=== PATIENT | male | born 1955 | race African-American/Black ===

== ENCOUNTER 2021-03-24 19:18 | Inpatient (IN) | payer MEDICARE, OTHER ==
[~2021-03-24] VITALS: Ht 172.7 cm; Wt 74.8 kg
[2021-03-24 21:04] LABS: BG BASE EXCESS 0.9 mmol/L (-2.0-2.0); BG CARBOXYHEMOGLOBIN 0.2 % (0.5-1.5); BG DEOXYHEMOGLOBIN 1.7 % (0.0-5.0); BG FRACTION INSPIRED OXYGEN 21; BG HCO3 ACT 22.8 mmol/L (22.0-26.0); BG METHEMOGLOBIN 0.6 % (0.0-1.5); BG OXYGEN SATURATION 98.3 % (92.0-98.5); BG OXYHEMOGLOBIN 97.5 % (94.0-97.0); BG PCO2 30.4 mmHg (35.0-45.0); BG PH 7.492 (7.350-7.450); BG PO2 110.8 mmHg (75.0-100.0); BG SAMPLE SITE RIGHT RADIAL; BG TOTAL HEMOGLOBIN 19.8 g/dL (12.0-18.0); BG VENT MODE ROOM AIR
[2021-03-24 21:49] LABS: BASOPHILS % 0.7 % (0.0-2.0); EOSINOPHILS % 1.2 % (0.0-5.0); HEMATOCRIT. 54.3 % (42.0-52.0); HEMOGLOBIN. 18.2 g/dL (14.0-18.0); LYMPHOCYTES % 15.4 % (20.0-50.0); MEAN CORPUSCULAR HEMOGLOBIN 27.2 pg (28.0-32.0); MEAN CORPUSCULAR VOLUME 81.1 fL (80.0-94.0); MEAN PLATELET VOLUME 8.1 fl (7.4-10.4); MONOCYTES % 6.1 % (2.0-8.0); NEUTROPHILS % 76.6 % (40.0-76.0); PLATELET 178 x1000/uL (130-400); RED BLOOD CELL COUNT 6.69 mill/uL (4.7-6.1); RED CELL DISTRIBUTION WIDTH 13.6 % (11.6-14.6)
[2021-03-24 21:53] LABS: CHLORIDE 109 mEq/L (98-107)
[2021-03-24 21:57] LABS: ETHANOL BLOOD < 10 mg/dL
[2021-03-24 21:59] LABS: BETA HYDROXYBUTYRATE 2.3 mMol/L (0.0-0.3)
[2021-03-25] MEDS ORDERED: NICARDIPINE 40MG/200ML PREMIX 200 ML IV STA (00:39)
[2021-03-25] MEDS ORDERED: NICARDIPINE 50 MG in SODIUM CHLORIDE 0.9% 230 ML IV PRN (01:00)
[2021-03-25] MEDS ORDERED: ONDANSETRON HCL 4MG/2ML INJ IV PRN (01:00)
[2021-03-25] MEDS ORDERED: DEXTROSE 50% WATER 50ML SYRINGE IV PRN (01:00)
[2021-03-25] MEDS ORDERED: ACETAMINOPHEN 325MG TABLET PO PRN ×2 (01:00)
[2021-03-25 01:06] LABS: CLARITY URINE CLOUDY (CLEAR); COLOR URINE YELLOW (YELLOW); KETONES URINE 1+ (NEGATIVE); LEUKOCYTE ESTERASE URINE TRACE (NEGATIVE); NITRITE URINE NEGATIVE (NEGATIVE); OCCULT BLOOD URINE 1+ (NEGATIVE); PROTEIN URINE 3+ (NEGATIVE); SPECIFIC GRAVITY URINE 1.026 (1.005-1.030)
[2021-03-25 01:17] LABS: *AMPHETAMINES SCREEN URINE NEGATIVE (NEGATIVE); *BARBITURATES SCREEN URINE NEGATIVE (NEGATIVE); *BENZODIAZEPINES SCREEN URINE NEGATIVE (NEGATIVE); *COCAINE SCREEN URINE NEGATIVE (NEGATIVE); METHADONE URINE SCREEN NEGATIVE (NEGATIVE); OPIATES URINE SCREEN NEGATIVE (NEGATIVE)
[2021-03-25 01:18] LABS: CANNABINOID URINE SCREEN PRESUMTIVE POSITIVE (NEGATIVE); PHENCYCLIDINE URINE SCREEN NEGATIVE (NEGATIVE)
[2021-03-25] MEDS ORDERED: POTASSIUM CHLORIDE INJ 40 MEQ in DEXT 5% WATER 250 ML IV ONE (04:45)
[2021-03-25] MEDS: KCL 20MEQ/100ML PREMIX 100 ML IV SCH ×2 (05:07→08:01)
[2021-03-25] MEDS: SODIUM CHLORIDE 0.9% INJ 3ML FLUSH IVF SCH ×2 (06:27→14:00)
[2021-03-25] MEDS ORDERED: HYDRALAZINE 20MG/ML VIAL IV PRN (07:00)
[2021-03-25] MEDS: ASPIRIN 81MG EC TABLET PO SCH (09:00)
[2021-03-25] MEDS: AMLODIPINE 5MG TABLET PO SCH ×2 (09:10→20:26)
[2021-03-25] MEDS: BLOOD SUGAR DIAGNOSTIC STRIP TEST SCH ×4 (10:04→20:27)
[2021-03-25] MEDS: INSULIN LISPRO 100 UNITS/ML SUBCUT SCH ×4 (10:50→20:27)
[2021-03-25] MEDS: CLONIDINE 0.2MG TABLET PO PRN (11:49)
[2021-03-25] MEDS: LOSARTAN POTASSIUM 50 MG TABLET PO SCH ×2 (11:49→20:24)
[2021-03-25 14:21] VITALS: BP 160/97
[2021-03-25 14:24] VITALS: BP 115/73
[2021-03-25 14:29] VITALS: BP 160/97
[2021-03-25 16:00] VITALS: BP 192/87
[2021-03-25 18:00] VITALS: BP 190/66
[2021-03-25 20:00] VITALS: BP 156/82
[2021-03-25] MEDS: ATORVASTATIN CALCIUM 40MG TABLET PO SCH (20:24)
[2021-03-26] VITALS (16 sets, daily range): BP systolic 139–190; BP diastolic 61–130
[2021-03-26] MEDS: DIPHENHYDRAMINE 50MG/ML VIAL IV PRN ×2 (04:27→22:38)
[2021-03-26] MEDS: HYDRALAZINE 20MG/ML VIAL IV PRN ×3 (04:27→21:17)
[2021-03-26] MEDS: SODIUM CHLORIDE 0.9% INJ 3ML FLUSH IVF SCH ×4 (04:31→21:21)
[2021-03-26] MEDS: BLOOD SUGAR DIAGNOSTIC STRIP TEST SCH ×4 (07:30→21:14)
[2021-03-26] MEDS: INSULIN LISPRO 100 UNITS/ML SUBCUT SCH ×4 (09:26→20:40)
[2021-03-26] MEDS: LOSARTAN POTASSIUM 50 MG TABLET PO SCH ×2 (09:26→20:38)
[2021-03-26] MEDS: ASPIRIN 81MG EC TABLET PO SCH (09:26)
[2021-03-26] MEDS: AMLODIPINE 5MG TABLET PO SCH ×2 (09:26→20:39)
[2021-03-26] MEDS: CLONIDINE 0.2MG TABLET PO PRN (12:23)
[2021-03-26] MEDS: METFORMIN HCL 500MG TABLET PO SCH (17:57)
[2021-03-26] MEDS: ATORVASTATIN CALCIUM 40MG TABLET PO SCH (20:38)
[2021-03-26] MEDS: INSULIN GLARGINE UD 100 UNITS/ML SYR SUBCUT SCH (21:21)
[2021-03-27] VITALS (12 sets, daily range): BP systolic 142–185; BP diastolic 61–88
[2021-03-27] MEDS: CLONIDINE 0.2MG TABLET PO PRN (00:31)
[2021-03-27] MEDS: SODIUM CHLORIDE 0.9% INJ 3ML FLUSH IVF SCH ×3 (06:33→21:24)
[2021-03-27] MEDS: HYDRALAZINE 20MG/ML VIAL IV PRN ×3 (06:33→23:13)
[2021-03-27] MEDS: BLOOD SUGAR DIAGNOSTIC STRIP TEST SCH ×4 (07:51→20:48)
[2021-03-27] MEDS: ASPIRIN 81MG EC TABLET PO SCH (08:12)
[2021-03-27] MEDS: AMLODIPINE 5MG TABLET PO SCH ×2 (08:12→20:35)
[2021-03-27] MEDS: LOSARTAN POTASSIUM 50 MG TABLET PO SCH ×2 (08:12→20:35)
[2021-03-27] MEDS: METFORMIN HCL 500MG TABLET PO SCH ×2 (08:12→18:21)
[2021-03-27] MEDS: INSULIN LISPRO 100 UNITS/ML SUBCUT SCH ×4 (08:13→20:37)
[2021-03-27] MEDS: ATORVASTATIN CALCIUM 40MG TABLET PO SCH (20:35)
[2021-03-27] MEDS: INSULIN GLARGINE UD 100 UNITS/ML SYR SUBCUT SCH (21:25)
[2021-03-28] VITALS (14 sets, daily range): BP systolic 123–188; BP diastolic 61–91
[2021-03-28] MEDS: SODIUM CHLORIDE 0.9% INJ 3ML FLUSH IVF SCH ×3 (05:38→21:11)
[2021-03-28] MEDS: HYDRALAZINE 20MG/ML VIAL IV PRN ×2 (06:10→16:25)
[2021-03-28] MEDS: BLOOD SUGAR DIAGNOSTIC STRIP TEST SCH ×4 (07:35→21:11)
[2021-03-28] MEDS: LOSARTAN POTASSIUM 50 MG TABLET PO SCH ×2 (08:50→21:08)
[2021-03-28] MEDS: ASPIRIN 81MG EC TABLET PO SCH (08:50)
[2021-03-28] MEDS: METFORMIN HCL 500MG TABLET PO SCH ×2 (08:50→17:54)
[2021-03-28] MEDS: AMLODIPINE 5MG TABLET PO SCH ×2 (08:50→21:08)
[2021-03-28] MEDS: INSULIN LISPRO 100 UNITS/ML SUBCUT SCH ×4 (08:52→21:10)
[2021-03-28] MEDS: ATORVASTATIN CALCIUM 40MG TABLET PO SCH (21:08)
[2021-03-28] MEDS: INSULIN GLARGINE UD 100 UNITS/ML SYR SUBCUT SCH (21:10)
[2021-03-29] VITALS (10 sets, daily range): BP systolic 126–187; BP diastolic 72–90
[2021-03-29] MEDS: HYDRALAZINE 20MG/ML VIAL IV PRN ×2 (00:07→05:12)
[2021-03-29] MEDS: SODIUM CHLORIDE 0.9% INJ 3ML FLUSH IVF SCH ×3 (05:12→22:37)
[2021-03-29] MEDS: CLONIDINE 0.2MG TABLET PO PRN (06:43)
[2021-03-29] MEDS: BLOOD SUGAR DIAGNOSTIC STRIP TEST SCH ×4 (07:50→21:00)
[2021-03-29] MEDS: AMLODIPINE 5MG TABLET PO SCH ×2 (09:06→22:37)
[2021-03-29] MEDS: LOSARTAN POTASSIUM 50 MG TABLET PO SCH ×2 (09:06→22:37)
[2021-03-29] MEDS: ASPIRIN 81MG EC TABLET PO SCH (09:06)
[2021-03-29] MEDS: METFORMIN HCL 500MG TABLET PO SCH ×2 (09:06→17:48)
[2021-03-29] MEDS: INSULIN LISPRO 100 UNITS/ML SUBCUT SCH ×4 (09:08→23:00)
[2021-03-29] MEDS: ATORVASTATIN CALCIUM 40MG TABLET PO SCH (22:37)
[2021-03-29] MEDS: INSULIN GLARGINE UD 100 UNITS/ML SYR SUBCUT SCH (22:59)
[2021-03-30] VITALS (7 sets, daily range): BP systolic 129–180; BP diastolic 65–104
[2021-03-30] MEDS: SODIUM CHLORIDE 0.9% INJ 3ML FLUSH IVF SCH ×3 (05:36→21:02)
[2021-03-30] MEDS: BLOOD SUGAR DIAGNOSTIC STRIP TEST SCH ×4 (07:30→20:29)
[2021-03-30] MEDS: INSULIN LISPRO 100 UNITS/ML SUBCUT SCH ×4 (08:44→21:11)
[2021-03-30] MEDS: AMLODIPINE 5MG TABLET PO SCH ×3 (08:51→21:02)
[2021-03-30] MEDS: METFORMIN HCL 500MG TABLET PO SCH ×2 (08:51→18:10)
[2021-03-30] MEDS: ASPIRIN 81MG EC TABLET PO SCH (08:51)
[2021-03-30] MEDS: LOSARTAN POTASSIUM 50 MG TABLET PO SCH ×3 (08:51→21:02)
[2021-03-30] MEDS: CLONIDINE 0.2MG TABLET PO PRN (12:37)
[2021-03-30] MEDS: ATORVASTATIN CALCIUM 40MG TABLET PO SCH ×2 (21:00→21:02)
[2021-03-30] MEDS: HYDRALAZINE 20MG/ML VIAL IV PRN (21:55)
[2021-03-30] MEDS: INSULIN GLARGINE UD 100 UNITS/ML SYR SUBCUT SCH (21:59)
[2021-03-31] VITALS (7 sets, daily range): BP systolic 112–173; BP diastolic 59–85
[2021-03-31] MEDS: SODIUM CHLORIDE 0.9% INJ 3ML FLUSH IVF SCH ×2 (05:51→14:42)
[2021-03-31] MEDS: INSULIN LISPRO 100 UNITS/ML SUBCUT SCH ×2 (08:00→12:49)
[2021-03-31] MEDS: BLOOD SUGAR DIAGNOSTIC STRIP TEST SCH ×2 (08:01→12:49)
[2021-03-31] MEDS: ASPIRIN 81MG EC TABLET PO SCH (08:02)
[2021-03-31] MEDS: METFORMIN HCL 500MG TABLET PO SCH (08:02)
[2021-03-31] MEDS: LOSARTAN POTASSIUM 50 MG TABLET PO SCH (08:02)
[2021-03-31] MEDS: AMLODIPINE 5MG TABLET PO SCH (08:04)
[2021-03-31] MEDS: CLONIDINE 0.2MG TABLET PO PRN (16:13)
[2021-03-31] MEDS: HYDRALAZINE 20MG/ML VIAL IV PRN (16:45)
== END 2021-03-31 17:20 | DRG 64 ==
LOC: ER 19:18 → EDBEDREQTM 03-25 00:29 → EDBEDREQ 03-25 00:29 → EDBEDREQDT 03-25 00:29 → 5EST 03-25 00:39 → EDBEDREQSVC 03-25 00:51 → EDBEDREQTM 03-25 00:51 → EDBEDREQSVC 03-25 11:06 → ENRESERV 03-25 11:07
PROVIDERS: ADMIT Internal Medicine; ATTEND Internal Medicine
PROC: 4A10X4Z Monitoring of Central Nervous Electrical Activity, External Approach (ICD-10-PCS; principal; 2021-03-27)
DX: I63.232 Cerebral infarction due to unspecified occlusion or stenosis of left carotid arteries (principal); G93.41 Metabolic encephalopathy; R47.01 Aphasia; I45.10 Unspecified right bundle-branch block; E78.5 Hyperlipidemia, unspecified; E11.9 Type 2 diabetes mellitus without complications; Z20.822 Contact with and (suspected) exposure to COVID-19
CPT/HCPCS: 36415; 36600; 70551; 71045; 80053; 80061; 80305; 80307; 80320; 80329; 81003; 82010; 82140; 82375; 82805; 82962; 83036; 84443; 84484; 85025; 87426; 93005; 93880; 95816; 97112; 97162; 97166; 97530; 97535; 99291; J0360; J1200; J1815; J2405; J3480; J7040; J7042; G0480

== ENCOUNTER 2021-12-13 16:39 | Inpatient (IN) | payer MEDICARE, OTHER, MEDICAID ==
[~2021-12-13] VITALS: Ht 182.9 cm; Wt 66.9 kg
[2021-12-13] MEDS ORDERED: SODIUM CHLORIDE 0.9% 1000ML BAG (SEPSIS BOLUS) IV ONE (17:00)
[2021-12-13 17:36] LABS: EOSINOPHILS % 4.1 % (0.0-5.0); HEMATOCRIT. 47.5 % (42.0-52.0); HEMOGLOBIN. 15.7 g/dL (14.0-18.0); LYMPHOCYTES % 35.3 % (20.0-50.0); MEAN CORPUSCULAR HEMOGLOBIN 26.7 pg (28.0-32.0); MEAN CORPUSCULAR VOLUME 80.8 fL (80.0-94.0); MEAN PLATELET VOLUME 7.4 fl (7.4-10.4); MONOCYTES % 5.4 % (2.0-8.0); NEUTROPHILS % 54.2 % (40.0-76.0); PLATELET 210 x1000/uL (130-400); RED BLOOD CELL COUNT 5.88 mill/uL (4.7-6.1); RED CELL DISTRIBUTION WIDTH 14.1 % (11.6-14.6)
[2021-12-13 17:43] LABS: CHLORIDE 103 mEq/L (98-107)
[2021-12-13] MEDS ORDERED: ASPIRIN 300MG SUPP PR ONE (19:00)
[2021-12-13] MEDS ORDERED: PIPERACILLIN/TAZ 3.375G PREMIX 50 ML IV ONE (19:00)
[2021-12-13] MEDS ORDERED: VANCOMYCIN 1G PREMIX 200 ML IV ONE (19:00)
[2021-12-13] MEDS: ASPIRIN 300MG SUPP PR NR (23:15)
[2021-12-14] MEDS: HYDRALAZINE 20MG/ML VIAL IV PRN ×3 (01:32→11:36)
[2021-12-14] MEDS: ASPIRIN 300MG SUPP PR NR (01:54)
[2021-12-14] MEDS ORDERED: CLONIDINE 0.1MG TABLET PO PRN (10:30)
[2021-12-14] MEDS ORDERED: ONDANSETRON HCL 4MG/2ML INJ IV PRN (10:30)
[2021-12-14] MEDS ORDERED: MAGNESIUM/ALUMINUM HYDROXIDE/SIMETHICONE 30ML UDC PO PRN (10:30)
[2021-12-14] MEDS ORDERED: ACETAMINOPHEN 325MG TABLET PO PRN ×2 (10:30)
[2021-12-14] MEDS ORDERED: DIPHENHYDRAMINE 50MG/ML VIAL IV PRN (10:30)
[2021-12-14] MEDS ORDERED: DEXTROSE 50% WATER 50ML SYRINGE IV PRN (10:30)
[2021-12-14 11:55] LABS: CLARITY URINE TURBID (CLEAR); COLOR URINE YELLOW (YELLOW); KETONES URINE NEGATIVE (NEGATIVE); LEUKOCYTE ESTERASE URINE 3+ (NEGATIVE); NITRITE URINE NEGATIVE (NEGATIVE); OCCULT BLOOD URINE 1+ (NEGATIVE); PH URINE 7.5 (4.5-8.0); PROTEIN URINE 3+ (NEGATIVE); SPECIFIC GRAVITY URINE 1.011 (1.005-1.030); UROBILINOGEN URINE 0.2 E.U./dL (0.2-1.0)
[2021-12-14] MEDS: INSULIN LISPRO 100 UNITS/ML SUBCUT SCH ×4 (12:00→20:53)
[2021-12-14 12:05] VITALS: BP 159/72
[2021-12-14] MEDS: BLOOD SUGAR DIAGNOSTIC STRIP TEST SCH ×4 (12:20→20:55)
[2021-12-14] MEDS: ENOXAPARIN 40MG/0.4ML SYR SUBCUT SCH (13:54)
[2021-12-14] MEDS: SODIUM CHLORIDE 0.9% INJ 3ML FLUSH IVF SCH ×2 (14:00→22:30)
[2021-12-14 16:00] VITALS: BP 159/58
[2021-12-14] MEDS: METFORMIN HCL 500MG TABLET PO SCH (18:49)
[2021-12-14] MEDS: LOSARTAN POTASSIUM 50 MG TABLET PO SCH (18:49)
[2021-12-14 20:00] VITALS: BP 145/62
[2021-12-14] MEDS ORDERED: INSU100V37 SQ (20:13)
[2021-12-14] MEDS ORDERED: ATOR40TA70 MT (20:13)
[2021-12-14] MEDS ORDERED: ASPI-1406 MT (20:13)
[2021-12-14] MEDS ORDERED: AMLO5TAB4 MT (20:13)
[2021-12-14] MEDS ORDERED: LANTUSUD SUBCUT (20:13)
[2021-12-14] MEDS ORDERED: LOSA50TA3 MT (20:13)
[2021-12-14] MEDS ORDERED: METF-414 MT (20:13)
[2021-12-14] MEDS: AMLODIPINE 5MG TABLET PO SCH (20:52)
[2021-12-14] MEDS: ATORVASTATIN CALCIUM 40MG TABLET PO SCH (20:52)
[2021-12-14] MEDS ORDERED: ZOLPIDEM TARTRATE 5MG TABLET PO PRN (21:00)
[2021-12-14] MEDS: INSULIN GLARGINE 100 UNITS/ML SUBCUT SCH (22:31)
[2021-12-15] VITALS: BP 108/59
[2021-12-15 04:00] VITALS: BP 148/67
[2021-12-15] MEDS: SODIUM CHLORIDE 0.9% INJ 3ML FLUSH IVF SCH ×3 (05:31→21:21)
[2021-12-15] MEDS: BLOOD SUGAR DIAGNOSTIC STRIP TEST SCH ×4 (05:31→20:52)
[2021-12-15 08:00] VITALS: BP 142/74
[2021-12-15] MEDS: AMLODIPINE 5MG TABLET PO SCH ×2 (11:24→21:21)
[2021-12-15] MEDS: ASPIRIN 81MG EC TABLET PO SCH (11:24)
[2021-12-15] MEDS: METFORMIN HCL 500MG TABLET PO SCH ×2 (11:25→18:17)
[2021-12-15] MEDS: LOSARTAN POTASSIUM 50 MG TABLET PO SCH ×2 (11:25→18:17)
[2021-12-15] MEDS: INSULIN LISPRO 100 UNITS/ML SUBCUT SCH ×4 (11:29→21:55)
[2021-12-15] MEDS: ENOXAPARIN 40MG/0.4ML SYR SUBCUT SCH (11:32)
[2021-12-15 12:00] VITALS: BP 138/69
[2021-12-15 16:00] VITALS: BP 135/74
[2021-12-15 20:00] VITALS: BP 111/53
[2021-12-15] MEDS: ATORVASTATIN CALCIUM 40MG TABLET PO SCH (21:21)
[2021-12-15] MEDS: INSULIN GLARGINE 100 UNITS/ML SUBCUT SCH (21:56)
[2021-12-16] VITALS (7 sets, daily range): BP systolic 110–141; BP diastolic 51–73
[2021-12-16] MEDS: SODIUM CHLORIDE 0.9% INJ 3ML FLUSH IVF SCH ×2 (05:33→13:42)
[2021-12-16] MEDS: BLOOD SUGAR DIAGNOSTIC STRIP TEST SCH ×4 (06:04→20:52)
[2021-12-16] MEDS: METFORMIN HCL 500MG TABLET PO SCH ×2 (07:50→17:29)
[2021-12-16] MEDS: INSULIN LISPRO 100 UNITS/ML SUBCUT SCH ×4 (07:50→21:18)
[2021-12-16] MEDS: ASPIRIN 81MG EC TABLET PO SCH (08:34)
[2021-12-16] MEDS: AMLODIPINE 5MG TABLET PO SCH ×2 (08:34→21:17)
[2021-12-16] MEDS: LOSARTAN POTASSIUM 50 MG TABLET PO SCH ×2 (08:34→16:40)
[2021-12-16] MEDS: ENOXAPARIN 40MG/0.4ML SYR SUBCUT SCH (10:50)
[2021-12-16] MEDS: ATORVASTATIN CALCIUM 40MG TABLET PO SCH (21:17)
== END 2021-12-16 21:30 | DRG 71 ==
LOC: ER 16:39 → MICUSO 18:59 → EDBEDREQ 19:01 → 6WST 12-14 12:15
PROVIDERS: ADMIT Internal Medicine; ATTEND Internal Medicine
DX: G93.41 Metabolic encephalopathy (principal); I69.351 Hemiplegia and hemiparesis following cerebral infarction affecting right dominant side; R47.01 Aphasia; R53.1 Weakness; E11.9 Type 2 diabetes mellitus without complications; I10 Essential (primary) hypertension; E78.00 Pure hypercholesterolemia, unspecified; Z20.822 Contact with and (suspected) exposure to COVID-19; Z87.891 Personal history of nicotine dependence
CPT/HCPCS: 36415; 71045; 80053; 81003; 82962; 83036; 83605; 83880; 84145; 84484; 85025; 87426; 93005; 99291; C9803; J0360; J1650; J1815; J2543; J3370; J7030

== ENCOUNTER 2022-02-03 13:08 | Inpatient (IN) | payer MEDICARE, OTHER ==
[~2022-02-03] VITALS: Ht 172.7 cm; Wt 62.6 kg
[~2022-02-03 13:08] MED LIST: AMLO5TAB4 MT; ASPI-1406 MT; ATOR40TA70 MT; INSU100V37 SQ; LANTUSUD SUBCUT; LOSA50TA3 MT; METF-414 MT
[2022-02-03] MEDS ORDERED: LEVETIRACETAM 1000MG PREMIX 100 ML IV ONE (13:45)
[2022-02-03 14:17] LABS: BASOPHILS % 0.8 % (0.0-2.0); EOSINOPHILS % 3.9 % (0.0-5.0); HEMATOCRIT. 44.4 % (42.0-52.0); HEMOGLOBIN. 14.6 g/dL (14.0-18.0); LYMPHOCYTES % 19.6 % (20.0-50.0); MEAN CORPUSCULAR HEMOGLOBIN 26.5 pg (28.0-32.0); MEAN CORPUSCULAR VOLUME 80.7 fL (80.0-94.0); MEAN PLATELET VOLUME 7.3 fl (7.4-10.4); MONOCYTES % 4.8 % (2.0-8.0); NEUTROPHILS % 70.9 % (40.0-76.0); PLATELET 225 x1000/uL (130-400); RED CELL DISTRIBUTION WIDTH 13.9 % (11.6-14.6)
[2022-02-03 14:26] LABS: CHLORIDE 103 mEq/L (98-107)
[2022-02-03 14:35] LABS: ETHANOL BLOOD < 10 mg/dL
[2022-02-03] MEDS ORDERED: HYDRALAZINE 20MG/ML VIAL IV PRN (19:00)
[2022-02-03] MEDS ORDERED: ACETAMINOPHEN 325MG TABLET PO PRN ×2 (19:00)
[2022-02-03] MEDS ORDERED: DIPHENHYDRAMINE 50MG/ML VIAL IV PRN (19:00)
[2022-02-03] MEDS ORDERED: DEXTROSE 50% WATER 50ML SYRINGE IV PRN (19:00)
[2022-02-03] MEDS ORDERED: ONDANSETRON HCL 4MG/2ML INJ IV PRN (19:00)
[2022-02-03] MEDS ORDERED: MAGNESIUM/ALUMINUM HYDROXIDE/SIMETHICONE 30ML UDC PO PRN (19:00)
[2022-02-03] MEDS ORDERED: CLONIDINE 0.1MG TABLET PO PRN (19:00)
[2022-02-03 20:00] VITALS: BP 136/64
[2022-02-03] MEDS ORDERED: MVI, ADULT NO.1 10 ML, FOLIC ACID 1 MG, THIAMINE HCL 100 MG in SODIUM CHLORIDE 0.9% 1,0... IV ONE ×4 (20:00)
[2022-02-03] MEDS ORDERED: ZOLPIDEM TARTRATE 5MG TABLET PO PRN (21:00)
[2022-02-03] MEDS: AMLODIPINE 5MG TABLET PO SCH (22:34)
[2022-02-03 22:35] VITALS: BP 136/64
[2022-02-03] MEDS: BLOOD SUGAR DIAGNOSTIC STRIP TEST SCH (22:35)
[2022-02-03] MEDS: LOSARTAN POTASSIUM 50 MG TABLET PO SCH (22:36)
[2022-02-03] MEDS: ENOXAPARIN 40MG/0.4ML SYR SUBCUT SCH (22:36)
[2022-02-03] MEDS: ATORVASTATIN CALCIUM 40MG TABLET PO SCH (22:36)
[2022-02-03] MEDS: INSULIN LISPRO 100 UNITS/ML SUBCUT SCH (22:37)
[2022-02-03] MEDS: INSULIN GLARGINE 100 UNITS/ML SUBCUT SCH (22:56)
[2022-02-04] VITALS (7 sets, daily range): BP systolic 137–157; BP diastolic 51–81
[2022-02-04] MEDS ORDERED: LORAZEPAM 2MG/ML CPJ IV PRN (01:15)
[2022-02-04] MEDS: BLOOD SUGAR DIAGNOSTIC STRIP TEST SCH ×4 (06:27→20:27)
[2022-02-04] MEDS: METFORMIN HCL 500MG TABLET PO SCH ×2 (07:20→17:20)
[2022-02-04] MEDS: INSULIN LISPRO 100 UNITS/ML SUBCUT SCH ×4 (07:20→20:28)
[2022-02-04] MEDS: AMLODIPINE 5MG TABLET PO SCH ×2 (08:59→20:27)
[2022-02-04] MEDS: LOSARTAN POTASSIUM 50 MG TABLET PO SCH ×2 (08:59→20:26)
[2022-02-04] MEDS ORDERED: LEVETIRACETAM 500MG PREMIX 100 ML IV SCH ×2 (09:00→21:00)
[2022-02-04] MEDS: ASPIRIN 81MG EC TABLET PO SCH (09:00)
[2022-02-04] MEDS: ENOXAPARIN 40MG/0.4ML SYR SUBCUT SCH (20:26)
[2022-02-04] MEDS: ATORVASTATIN CALCIUM 40MG TABLET PO SCH (20:27)
[2022-02-04] MEDS: LEVETIRACETAM 500MG TABLET PO SCH (20:27)
[2022-02-04] MEDS: INSULIN GLARGINE 100 UNITS/ML SUBCUT SCH (22:00)
[2022-02-05] VITALS (8 sets, daily range): BP systolic 117–167; BP diastolic 24–100
[2022-02-05] MEDS: BLOOD SUGAR DIAGNOSTIC STRIP TEST SCH ×4 (05:56→21:59)
[2022-02-05] MEDS: INSULIN LISPRO 100 UNITS/ML SUBCUT SCH ×4 (07:20→21:00)
[2022-02-05] MEDS: METFORMIN HCL 500MG TABLET PO SCH ×2 (10:54→19:10)
[2022-02-05] MEDS: ASPIRIN 81MG EC TABLET PO SCH (10:54)
[2022-02-05] MEDS: LOSARTAN POTASSIUM 50 MG TABLET PO SCH ×2 (10:54→21:59)
[2022-02-05] MEDS: AMLODIPINE 5MG TABLET PO SCH ×2 (10:54→21:59)
[2022-02-05] MEDS: LEVETIRACETAM 500MG TABLET PO SCH ×2 (10:54→21:58)
[2022-02-05] MEDS: ATORVASTATIN CALCIUM 40MG TABLET PO SCH (21:59)
[2022-02-05] MEDS: ENOXAPARIN 40MG/0.4ML SYR SUBCUT SCH (22:00)
[2022-02-05] MEDS: INSULIN GLARGINE 100 UNITS/ML SUBCUT SCH (23:00)
[2022-02-06] VITALS: BP 134/66
[2022-02-06 04:00] VITALS: BP 117/58
[2022-02-06] MEDS: BLOOD SUGAR DIAGNOSTIC STRIP TEST SCH ×2 (06:21→12:00)
[2022-02-06] MEDS: INSULIN LISPRO 100 UNITS/ML SUBCUT SCH ×3 (07:20→12:05)
[2022-02-06 08:00] VITALS: BP 154/77
[2022-02-06] MEDS: ASPIRIN 81MG EC TABLET PO SCH (10:00)
[2022-02-06] MEDS: METFORMIN HCL 500MG TABLET PO SCH (10:00)
[2022-02-06] MEDS: LEVETIRACETAM 500MG TABLET PO SCH (10:00)
[2022-02-06] MEDS: AMLODIPINE 5MG TABLET PO SCH (10:00)
[2022-02-06] MEDS: LOSARTAN POTASSIUM 50 MG TABLET PO SCH (11:11)
[2022-02-06 12:00] VITALS: BP 142/68
[2022-02-06 13:15] VITALS: BP 154/77
== END 2022-02-06 14:22 | DRG 101 ==
LOC: ER 13:28 → ENRESERV 17:11 → 3WST 19:29
PROVIDERS: ADMIT Internal Medicine; ATTEND Internal Medicine
DX: G40.909 Epilepsy, unspecified, not intractable, without status epilepticus (principal); I69.351 Hemiplegia and hemiparesis following cerebral infarction affecting right dominant side; R47.01 Aphasia; E11.9 Type 2 diabetes mellitus without complications; E78.00 Pure hypercholesterolemia, unspecified; G93.89 Other specified disorders of brain; I10 Essential (primary) hypertension
CPT/HCPCS: 36415; 71045; 80053; 80320; 82962; 83036; 85025; 99285; J1650; J1815; J1953; J3411; J3490; J7030; G0480

== ENCOUNTER 2022-05-01 15:27 | Emergency (ER) | payer MEDICARE, MEDICAID ==
[~2022-05-01] VITALS: Ht 175.3 cm; Wt 75.0 kg
[~2022-05-01 15:27] MED LIST changes: +AMIN30LI2 PO; -AMLO5TAB4 MT; +AMLO5TAB88 PO; +ASCO125T PO; -ASPI-1406 MT; +ASPI-1406 PO; +CLON0.2T PO; +CRAN250C MT; +INSU100I13 SQ; +INSU100I28 SQ; -INSU100V37 SQ; -LANTUSUD SUBCUT; -LOSA50TA3 MT; +LOSA50TA41 MT; -METF-414 MT; +METF-416 MT; +MULT-230 MT
[2022-05-01] MEDS ORDERED: LEVETIRACETAM 500MG PREMIX 100 ML IV ONE (17:30)
[2022-05-01] MEDS ORDERED: LORAZEPAM 2MG/ML CPJ IV ONE (17:30)
[2022-05-01] MEDS ORDERED: SODIUM CHLORIDE 0.9% 1,000 ML IV ONE (17:30)
[2022-05-01 19:13] LABS: BASOPHILS % 0.5 % (0.0-2.0); EOSINOPHILS % 0.8 % (0.0-5.0); HEMATOCRIT. 46.6 % (42.0-52.0); HEMOGLOBIN. 15.4 g/dL (14.0-18.0); LYMPHOCYTES % 8.1 % (20.0-50.0); MEAN CORPUSCULAR HEMOGLOBIN 26.6 pg (28.0-32.0); MEAN CORPUSCULAR VOLUME 80.4 fL (80.0-94.0); MEAN PLATELET VOLUME 8.1 fl (7.4-10.4); MONOCYTES % 3.6 % (2.0-8.0); PLATELET 250 x1000/uL (130-400); RED BLOOD CELL COUNT 5.79 mill/uL (4.7-6.1); RED CELL DISTRIBUTION WIDTH 14.5 % (11.6-14.6)
[2022-05-01] MEDS ORDERED: LORAZEPAM 2MG/ML CPJ IV NR (19:15)
[2022-05-01 19:24] LABS: CHLORIDE 102 mEq/L (98-107)
[2022-05-02] MEDS ORDERED: CLONIDINE 0.1MG TABLET PO ONE (10:15)
[2022-05-02 10:30] VITALS: BP 152/99
== END 2022-05-02 10:45 ==
LOC: ER 15:27
DX: R56.9 Unspecified convulsions (principal); R47.01 Aphasia; E11.9 Type 2 diabetes mellitus without complications; E78.00 Pure hypercholesterolemia, unspecified; I10 Essential (primary) hypertension; Z86.73 Personal history of transient ischemic attack (TIA), and cerebral infarction without residual deficits; Z79.899 Other long term (current) drug therapy
CPT/HCPCS: 36415; 70450; 71045; 80053; 84484; 85025; 93005; 96365; 96366; 96375; 99285; J1953; J2060; J7030

== ENCOUNTER 2023-08-29 11:27 | Inpatient (IN) | payer MEDICARE, MEDICAID ==
[~2023-08-29] VITALS: Ht 170.2 cm; Wt 71.2 kg
[2023-08-29 12:05] LABS: BASOPHILS % 0.9 % (0.0-2.0); EOSINOPHILS % 3.3 % (0.0-5.0); HEMATOCRIT. 39.2 % (42.0-52.0); HEMOGLOBIN. 13.4 g/dL (14.0-18.0); LYMPHOCYTES % 23.2 % (20.0-50.0); MEAN CORPUSCULAR HGB CONC 34.3 g/dL (31.0-37.0); MEAN CORPUSCULAR VOLUME 81.8 fL (80.0-94.0); MEAN PLATELET VOLUME 6.9 fl (7.4-10.4); MONOCYTES % 5.9 % (2.0-8.0); NEUTROPHILS % 66.7 % (40.0-76.0); PLATELET 413 x1000/uL (130-400); RED BLOOD CELL COUNT 4.79 mill/uL (4.7-6.1); RED CELL DISTRIBUTION WIDTH 13.5 % (11.6-14.6); WHITE BLOOD COUNT 7.2 x1000/uL (4.5-11.0)
[2023-08-29 12:14] LABS: CHLORIDE 102 mEq/L (98-107); POTASSIUM 3.9 mEq/L (3.5-5.1); SODIUM 137 mEq/L (136-145)
[2023-08-29 12:15] LABS: CALCIUM 9.7 mg/dL (8.7-10.4); CARBON DIOXIDE 29 mEq/L (21-32)
[2023-08-29] MEDS: VANCOMYCIN 1G PREMIX 200 ML IV ONE (12:19)
[2023-08-29 12:20] LABS: CREATININE 0.9 mg/dL (0.6-1.3); GLUCOSE 163 mg/dL (70-105); TROPONIN I HIGH SENSITIVITY 4 ng/L (3.0-53); UREA NITROGEN BLOOD 12 mg/dL (9-23)
[2023-08-29 12:21] LABS: INR 1.2; PROTHROMBIN TIME 12.7 sec (9.6-11.0)
[2023-08-29] MEDS ORDERED: ONDANSETRON HCL 4MG/2ML INJ IV PRN (16:30)
[2023-08-29] MEDS ORDERED: DEXTROSE 50% WATER 50ML SYRINGE IV PRN (16:30)
[2023-08-29] MEDS ORDERED: ZOLPIDEM TARTRATE 5MG TABLET PO PRN (16:30)
[2023-08-29] MEDS ORDERED: DIPHENHYDRAMINE 50MG/ML VIAL IV PRN (16:30)
[2023-08-29] MEDS ORDERED: LORAZEPAM 2MG/ML INJ IV PRN (16:30)
[2023-08-29] MEDS ORDERED: MAGNESIUM/ALUMINUM HYDROXIDE/SIMETHICONE 30ML UDC PO PRN (16:30)
[2023-08-29] MEDS ORDERED: MAGNESIUM HYDROXIDE 400MG/5ML 30ML UDC PO PRN (16:30)
[2023-08-29] MEDS ORDERED: ACETAMINOPHEN 325MG TABLET PO PRN ×2 (16:30)
[2023-08-29] MEDS ORDERED: CLONIDINE 0.1MG TABLET PO PRN (16:30)
[2023-08-29] MEDS ORDERED: CEFAZOLIN 500 MG in DEXTROSE 5% WATER 50 ML IV SCH (16:30)
[2023-08-29 17:00] VITALS: BP 151/72; PULSE 73; RESP 18; TEMP 97.9
[2023-08-29] MEDS ORDERED: NALOXONE HCL 0.4MG/ML VIAL IV PRN (17:00)
[2023-08-29] MEDS: HYDROCODONE/ACETAMINOPHEN 5/325MG TABLET PO PRN (17:12)
[2023-08-29] MEDS: ENOXAPARIN 40MG/0.4ML SYR SUBCUT SCH (17:12)
[2023-08-29] MEDS: BLOOD SUGAR DIAGNOSTIC STRIP TEST SCH (17:13)
[2023-08-29] MEDS: METFORMIN HCL 500MG TABLET PO SCH (17:13)
[2023-08-29] MEDS: DOCUSATE SODIUM 100MG CAPSULE PO SCH (17:13)
[2023-08-29] MEDS: INSULIN LISPRO 100 UNITS/ML SUBCUT SCH (17:17)
[2023-08-29 18:20] VITALS: BP 151/72; PULSE 73; RESP 18; TEMP 97.9
[2023-08-29] MEDS: CEFAZOLIN 1000MG PREMIX 50ML IV SCH (18:56)
[2023-08-29 20:00] VITALS: BP 130/79; PULSE 68; RESP 16; TEMP 97.4
[2023-08-29] MEDS: INSULIN GLARGINE 100 UNITS/ML SUBCUT SCH (21:42)
[2023-08-29] MEDS: LEVETIRACETAM 500MG TABLET PO SCH (21:45)
[2023-08-29] MEDS: GABAPENTIN 100MG CAPSULE PO SCH (21:45)
[2023-08-29] MEDS: AMLODIPINE 5MG TABLET PO SCH (21:45)
[2023-08-29] MEDS: ATORVASTATIN CALCIUM 40MG TABLET PO SCH (21:45)
[2023-08-29] MEDS: SODIUM CHLORIDE 0.9% INJ 3ML FLUSH IVF SCH (21:46)
[2023-08-30 04:00] VITALS: BP 115/61; PULSE 75; RESP 18; TEMP 98.2
[2023-08-30 08:00] VITALS: BP 149/80; PULSE 80; RESP 20; TEMP 98.1
[2023-08-30] MEDS: LOSARTAN 50 MG TABLET PO SCH (08:58)
[2023-08-30] MEDS: MULTIVITAMINS,THER W-MINERALS TABLET PO SCH (08:59)
[2023-08-30] MEDS: ASPIRIN 81MG EC TABLET PO SCH (09:00)
[2023-08-30 12:00] VITALS: BP 134/69; PULSE 72; RESP 20; TEMP 98.4
[2023-08-30 16:00] VITALS: BP 130/68; PULSE 68; RESP 20; TEMP 97.5
[2023-08-30 16:02] LABS: CLARITY URINE CLOUDY (CLEAR); COLOR URINE YELLOW (YELLOW); GLUCOSE URINE NEGATIVE (NEGATIVE); KETONES URINE NEGATIVE (NEGATIVE); LEUKOCYTE ESTERASE URINE 3+ (NEGATIVE); NITRITE URINE NEGATIVE (NEGATIVE); OCCULT BLOOD URINE TRACE (NEGATIVE); PROTEIN URINE 1+ (NEGATIVE); UROBILINOGEN URINE 0.2 E.U./dL (0.2-1.0)
[2023-08-30 16:27] LABS: BACTERIA URINE 1+; RBC URINE 0-2 /hpf (0-2); SQUAMOUS EPITHELIAL CELL URINE FEW /lpf (RARE/1+); WBC URINE 25-50 /hpf (0-2)
[2023-08-30 20:00] VITALS: BP 117/72; PULSE 78; RESP 21; TEMP 97.6
[2023-08-30] MEDS: METRONIDAZOLE 500MG TABLET PO SCH (21:06)
[2023-08-30] MEDS ORDERED: LIDOCAINE HCL/PF 2% 20 MG/ML 10ML VIAL INL NR (23:00)
[2023-08-30] MEDS ORDERED: LIDOCAINE HCL 1% 20ML VIAL (Pyxis) INJ INL NR (23:00)
[2023-08-31 04:00] VITALS: BP 152/72; PULSE 83; TEMP 97.9
[2023-08-31 08:00] VITALS: BP 157/70; PULSE 84; RESP 18; TEMP 97.7
[2023-08-31 12:00] VITALS: BP 141/73; PULSE 62; RESP 18; TEMP 97.9
[2023-08-31 16:00] VITALS: BP 142/76; PULSE 71; RESP 18; TEMP 97.1
[2023-08-31 20:00] VITALS: BP 148/98; PULSE 80; RESP 17; TEMP 98.8
[2023-09-01] VITALS: BP 167/74; PULSE 80; RESP 18; TEMP 97.6
[2023-09-01 04:00] VITALS: BP 158/75; PULSE 90; RESP 18; TEMP 97.5
[2023-09-01 08:00] VITALS: BP 125/59; PULSE 78; RESP 19; TEMP 97.9
[2023-09-01 12:00] VITALS: BP 153/75; PULSE 78; RESP 19; TEMP 97.4
[2023-09-01 15:39] VITALS: BP 126/68; PULSE 62; TEMP 97.4; O2SAT 99
[2023-09-01 16:00] VITALS: BP 154/67; PULSE 77; RESP 20; TEMP 97.4
== END 2023-09-01 17:48 | DRG 264 ==
LOC: ER 11:39 → 6WST 12:49 → EDBEDREQ 12:52 → EDBEDREQTM 12:52 → EDBEDREQSVC 12:52
PROVIDERS: ADMIT Internal Medicine; ATTEND Internal Medicine
PROC: 0YBM0ZZ Excision of Right Foot, Open Approach (ICD-10-PCS; principal; 2023-08-31)
DX: E11.51 Type 2 diabetes mellitus with diabetic peripheral angiopathy without gangrene (principal); L03.115 Cellulitis of right lower limb; I69.351 Hemiplegia and hemiparesis following cerebral infarction affecting right dominant side; N39.0 Urinary tract infection, site not specified; E11.621 Type 2 diabetes mellitus with foot ulcer; L97.519 Non-pressure chronic ulcer of other part of right foot with unspecified severity; I10 Essential (primary) hypertension; G40.909 Epilepsy, unspecified, not intractable, without status epilepticus; E78.00 Pure hypercholesterolemia, unspecified; M85.80 Other specified disorders of bone density and structure, unspecified site; Z74.01 Bed confinement status; Z87.891 Personal history of nicotine dependence
CPT/HCPCS: 36415; 71045; 73620; 80048; 81003; 82962; 83605; 84145; 84484; 85025; 87070; 87077; 87186; 88304; 88311; 93005; 93923; 99285; J0690; J1650; J1815; J3370; J3490